=== PATIENT | female | born 1975 | race Caucasian/White ===

== ENCOUNTER → 2018-04-26 | Outpatient (CLI) | LOC: CAR 06:51 | PROVIDERS: ATTEND Internal Medicine | DX: R06.02 Shortness of breath (principal); R07.9 Chest pain, unspecified ==

== ENCOUNTER 2018-04-27 06:56 | Outpatient (CLI) ==
--- NOTE | 2018-04-27 14:37 | ECHOSTRESS ---
Date of Exam: 04/27/18 Ordering Physician: DR. DESIREE BUTLER Reason for Echo: CHEST PAIN, SOB, STRESS TEST--NO ISCHEMIA M-Mode Normal Adult Results LV Dimensions Normal Adult Results AoV Opening excursions >1.6 LVEDD-base- 3.5-5.8 Ao root dimensions 2.0-3.7 LVESD-base- 3.1-4.6 L. Atrium dimensions 1.9-3.8 Post. Wall thickness 0.8-1.1 IV septum (thickness) 0.7-1.2 Post. Wall excursion 0.72-1.3 Septal motion Systolic motion R. Ventricular cavity 1.5-2.0 LVEF 60% Paradoxical septal wall motion 2-D: NORMAL LEFT VENTRICULAR CONTRACTILITY--RESTING AND POST EXERCISE M-MODE: MV: AV: TV: PV: CHAMBER SIZE: WALL MOTION: NORMAL LEFT VENTRICULAR CONTRACTILITY--RESTING AND POST EXERCISE PERICARDIUM: INTERPRETATION: 1. NORMAL LEFT VENTRICULAR CONTRACTILITY--RESTING AND POST EXERCISE MTDD
--- NOTE | 2018-04-27 14:44 | STRESS ---
Date of Test: 04/27/18 Ordering Physician: DR. DESIREE BUTLER Occupation: TEACHER Reason for Exam: CHEST PAIN, SOB Smoking History: NO Height: 66" Weight: 150 LBS Current Medications: SYNTHROID, ASA Target Heart Rate: 149/176 Resting EKG: SINUS RHYTHM/NO ACUTE CHANGES S-T SEGMENT STAGE MPH/GRADE HEART RATE BPM BLOOD PRESSURE MMHG RHYTHM +/- ELEVATION DEPRESSION SYMPTOMS,COMMENTS AT REST 70 112/88 SR X NONE 1 1.7/10% 110 122/80 SR X NONE 2 2.5/12% 123 120/76 SR X NONE 3 3.4/14% 4 4.2/16% 5 5.0/18% Immediately After 150 122/76 SR X FATIGUE Minutes Post Exercise 5:00 80 120/82 SR X NO COMMENTS Minutes Post Exercise DURATION OF EXERCISE: 8:00 MAXIMUM HEART RATE REACHED: 80 BPM REASON FOR TERMINATION: FATIGUE 98% OXYGEN SATURATION WITH EXERCISE ON ROOM AIR METS: 10.1 INTERPRETATION: 1: NO EVIDENCE OF ISCHEMIA BY ST-T WAVE 2: NO CHEST PAIN OR CHEST DISCOMFORT 3: BLOOD PRESSURE RESPONSE: NORMAL AT REST AND WITH EXERCISE 4. NO ARRHYTHMIAS NORMAL LEFT VENTRICULAR CONTRACTILITY--RESTING AND POST EXERCISE MTDD
== END 2018-04-27 06:57 | disposition home or self-care (01) ==
LOC: CAR 06:56
PROVIDERS: ATTEND Internal Medicine
DX: R06.02 Shortness of breath (principal); R07.9 Chest pain, unspecified